=== PATIENT | female | born 1955 | race Caucasian/White ===

== ENCOUNTER → 2017-02-14 | Outpatient (CLI) | payer OTHER ==
[~2017-02-14] MED LIST: ARMOUR THYROID60 M1 PO; ASTRAGALUS470 MG PO; B-121000 MCG PO; B-12500 MCG PO; B-125000 MC1 SUBLING; BUDEPRION XL300 MG PO; CALCIUM 600 +1 EAC1 PO; CELEBREX50 MG; CLEOCIN HCL150 MG; COLACE100 MG PO; CORTEF5 MG PO; FISH OIL 1,001000 M1 PO; GINKGO BILOBA120 M1 PO; GINKGO60 MG PO; GLYCOLAX17 GM PO; HEPARIN BUCCAL; HYDROCHLOROTHIA25 M2 PO; HYDROXYCHLOROQ200 M1; IBUPROFEN 600600 M1 PO; IODINE PO; LEXAPRO 10 MG T10 M1 PO; LIOTHYRONINE PO; LISINOPRIL10 MG PO; MAGNESIUM400 MG; MELATONIN5 M1 PO; MEPHYTON 5 MG TA5 M1; MILK THISTLE500 MG PO; MIRALAX255 GM PO; MIRAPEX0.125 MG PO; MIRAPEX0.25 MG PO; MULTI VITAMIN1 EACH PO; NAPROSYN500 MG PO; NEXIUM 40 MG CA40 M1 PO; NEXIUM2.5 MG PO; NORCO 10-325 T1 EACH PO; NORCO 5-325 TA1 EACH PO; OXYCONTIN CR 1010 M1 PO; PHOSLO667 MG PO; PROBIOTIC1 EAC1 PO; ROBAXIN 750 MG750 M1 PO; SILVER SUPPLEMENT PO; SODIUM OXYBATE PO; TRAMADOL 50 MG50 MG PO; VITAMIN D2000 UNIT PO; VITCB500GO PO; WELLBUTRIN SR150 MG PO; WELLBUTRIN XL300 MG PO; XANAX 0.25 MG0.25 MG PO; XYREM PO; ZPAK; [UNRECOGNIZED DRUG - CODE] BUCCAL; [UNRECOGNIZED DRUG - OTHER] PO; [UNRECOGNIZED DRUG - OTHER] PO
[2017-02-14 12:09] LABS: CSF GLUCOSE 55 mg/dL (40-70); CSF PROTEIN 50 mg/dL (15-45)
[2017-02-14 12:12] LABS: MANUAL DIFF NO; NUMBER OF TUBES 4
[2017-02-14 12:13] LABS: VOLUME 9 ml
[2017-02-14 12:14] LABS: CSF CLARITY CLEAR; CSF WBC 0 /mm3 (0-10)
[2017-02-18 15:06] LABS: CSF ALBUMIN 30 mg/dL (11-48); CSF IgG 6.5 mg/dL (0.0-8.6); CSF/SERUM ALBUMIN INDEX 8 (0-8)
[2017-02-18 19:08] LABS: HHV-6 DNA QUANT Negative (Negative)
[2017-02-19 11:11] LABS: CMV DNA Negative (Negative)
[2017-02-19 12:07] LABS: EBV QUANT Negative (Negative)
[2017-02-20 10:13] LABS: HHV-6 SOURCE CSF
== END | disposition home or self-care (01) ==
LOC: RAD 07:54
PROVIDERS: Psychiatry & Neurology Neurology
DX: A69.20 Lyme disease, unspecified (principal)

== ENCOUNTER 2017-11-18 05:34 | Inpatient (IN) | payer OTHER ==
[2017-11-12 09:44] LABS: HEMATOCRIT 42.5 % (37.0-47.0); HEMOGLOBIN 14.3 gm/dL (12.0-15.0); MCH 27.3 pg (26.0-34.0); MCHC 33.6 g/dL (28.0-37.0); MCV 81.1 fL (80.0-100.0); RBC 5.24 mil/uL (4.20-5.00); RDW 15.5 % (10.5-14.5); WBC 10.4 thou/uL (4.0-11.0)
[2017-11-12 09:50] LABS: URINE BILIRUBIN NEGATIVE (Negative); URINE BLOOD NEGATIVE (Negative); URINE CLARITY CLEAR; URINE COLOR YELLOW; URINE GLUCOSE-RANDOM* NEGATIVE (Negative); URINE KETONES NEGATIVE (Negative); URINE LEUKOCYTES-REFLEX NEGATIVE (Negative); URINE NITRITE-REFLEX NEGATIVE (Negative); URINE PROTEIN (DIPSTICK) NEGATIVE (Negative); URINE SPECIFIC GRAVITY <= 1.005 (1.005-1.035); URINE UROBILINOGEN 0.2 E.U./dl (0.2-1.0)
[2017-11-12 09:59] LABS: ALBUMIN 3.7 g/dL (3.4-5.0); POTASSIUM 3.2 mmol/L (3.5-5.1)
[2017-11-12 10:08] LABS: PROTIME 9.8 Seconds (9.3-11.4)
[~2017-11-18] VITALS: Ht 167.6 cm; Wt 101.2 kg
--- NOTE | ~2017-11-18 | EKG ---
[address] [email or web address] [address] ELECTROCARDIOGRAM REPORT Name: KENNY TRIVEDIORIE SERINA Room #: PRE IN [facility].#: [id number] Admission: Attend Phys: Zak Esparza MD Discharge: Date of : 57 Report #: [id number] THIS REPORT FOR: //name// [facility] Test Date: 2017-11-12 Test Time: 09:13:38 Pat Name: ORAL TRIVEDI Department: Room: Gender: F Poster: SADIQ DORENE : 1955 Requested By: Zak Esparza Order Number: [id number] MD: Albino Goodrich Measurements Intervals Picacho Rate: 77 P: 51 ND: 173 QRS: 17 QRSD: 92 T: 31 QT: 423 QTc: 479 Interpretive Statements Sinus rhythm Nonspecific ST segment abnormality Compared to ECG 04/29/2014 06:24:52 No significant change was found Electronically Signed On 11-12-2017 16:59:55 CDT by Albino Goodrich [email or web address] <ELECTRONICALLY SIGNED> By: Albino Goodrich MD, [facility] 11/12/17 1659 0913 2 Albino Goodrich MD, FACC /EPI
--- NOTE | ~2017-11-18 | O ---
[facility] [address] OPERATIVE REPORT Name: ORAL TRIVEDI Room #: 409-P [facility] IN M.R.#: [id number] Admission: 11/18/17 Attend Phys: Zak Esparza MD Discharge: 11/20/17 Date of : 57 Report #: [id number] THIS REPORT FOR: //name// CC: Pat Haider Zak Esparza DATE OF SERVICE: 11/18/2017 PREOPERATIVE DIAGNOSIS: Left hip osteoarthritis. POSTOPERATIVE DIAGNOSIS: Left hip osteoarthritis. PROCEDURE: Left total hip arthroplasty. SURGEON: Zak Esparza MD COOK SHIP: Caterina Freitas PA-C. INDICATION FOR COOK SHIP: Throughout the case, extensive retraction and manipulation of the hip was required including dislocation and reduction of the hip. This was afforded to me by my staff physical therapy assistant. ANESTHESIA: General endotracheal. IMPLANTS: [employer] size 12 high offset Synergy press fit stem, a size 50 R3 acetabular cup with 1 acetabular screw, size 32+0 Oxinium head. ESTIMATED BLOOD LOSS: 150 mL COMPLICATIONS: None. SPECIMENS: None. CONDITION UPON LEAVING THE OPERATING ROOM: Stable. INDICATION FOR PROCEDURE: The patient is a 62-year-old female with left hip osteoarthritis. She had failed conservative treatment for this and after discussion with her, she elected for left total hip arthroplasty. DESCRIPTION OF PROCEDURE: Risks, benefits, alternatives, complications were discussed in detail with the patient including, but not limited to risk of anesthesia, risk of damage to nerves, arteries, blood vessels, risk for infection, bleeding, risk for continued hip pain, leg length discrepancy, instability and need for reoperation. Informed consent was obtained from the patient. Left hip was appropriately marked in the preoperative holding area. IV Ancef was given for preoperative antibiotics. She was brought to the [address] [address] OPERATIVE REPORT Name: ORAL TRIVEDI Room #: 409-P [facility] IN M.R.#: [id number] Admission: 11/18/17 Attend Phys: Zak Esparza MD Discharge: 11/20/17 Date of : 57 Report #: [id number] operating room and placed in the supine position on the operating room table. General endotracheal anesthesia was induced without complication. She was then placed in the right lateral decubitus position with the left hip uppermost. Left hip and lower extremity were prepped and draped in normal sterile fashion. Timeout was performed properly identifying the patient and procedure as well as instrumentation. All in the operating room were in agreement. Standard posterior approach to the hip was made with 10 blade through the skin. Dissection was taken down to the fascia with Bovie cautery and fresh #10 blade was used to make a fascial incision. This was taken proximally and distally with curved Alvarez scissor. Charnley retractor was placed. The trochanteric bursa was taken down with Bovie cautery. Piriformis tendon was identified, tagged and taken down with Bovie. Short external rotators were also taken down with Bovie. Capsulotomy was made and capsule ends were tagged for later repair. The hip was dislocated and there was extensive osteoarthritic change of the femoral head. Femoral neck cut was made 1 cm proximal to the lesser trochanter based on preoperative templating and the femoral head was removed. Deep acetabular retractors were placed and the labrum was removed sharply. Pulvinar was removed with Bovie cautery. The acetabulum was then sequentially reamed up to a size 50 at which point there was excellent bleeding cancellous bone. A size 49 acetabular cup was trialed and found to have a good fit. A final size 50 R3 acetabular cup was placed and one acetabular screw was placed for backup fixation. A polyethylene liner for 32 head was placed. After this, attention was turned to the femur. This was reamed and broached up to a size 12 at which point a size 12 broach was stable. This was trialed with a high offset neck and a 32+0 head. Hip was reduced, taken through range of motion, found to be stable, found to have equal leg lengths. Hip was dislocated and the broach was removed. Final size 12 high offset Synergy press fit stem was placed. This was trialed again with a 32+0 head. Hip was reduced, taken through range of motion, found to be stable, found to have equal leg lengths. Hip was dislocated once more and a trial head was removed. A final size 32+0 Oxinium head was placed. Hip was reduced, taken through range of motion, found to be stable, found to have equal leg lengths. The hip was thoroughly irrigated with normal saline. A periarticular injection consisting of morphine, ropivacaine, epinephrine and Toradol was placed in the hip joint capsule. A gram of vancomycin was placed deep in the hip joint. The capsule and piriformis were repaired with 0 FiberWire. The fascia was closed with 0 Vicryl, skin was closed with 2-0 Vicryl, 3-0 Monocryl and Dermabond and a GRANT dressing was applied. The patient tolerated this procedure well and went to the recovery room under the care of anesthesia postoperatively. <ELECTRONICALLY SIGNED> By: Zak Esparza MD 11/23/17 0931 1712 1744 Zak Esparza MD /nt
[~2017-11-18 05:34] MED LIST changes: +CALCIUM 500 +1 EAC5 PO; +CELEBREX 200 M200 M1 PO; +FLEXERIL PO; +GABAPENTIN 100100 MG PO; +HYDROCODON-ACE1 EAC7 PO; +IRON18 M1 PO; +NEXIUM40 MG PO
[2017-11-18 14:56] VITALS: BP 134/70
[2017-11-18 20:35] VITALS: BP 112/61
[2017-11-18 23:49] VITALS: BP 99/54
[2017-11-19 05:16] VITALS: BP 102/53
[2017-11-19 05:57] LABS: MCHC 33.5 g/dL (28.0-37.0); RBC 4.43 mil/uL (4.20-5.00)
[2017-11-19 05:58] LABS: HEMATOCRIT 36.1 % (37.0-47.0); HEMOGLOBIN 12.1 gm/dL (12.0-15.0); MCH 27.3 pg (26.0-34.0); MCV 81.4 fL (80.0-100.0); RDW 15.4 % (10.5-14.5); WBC 14.3 thou/uL (4.0-11.0)
[2017-11-19 07:21] VITALS: BP 89/65
[2017-11-19 15:29] VITALS: BP 95/49
[2017-11-19 20:47] VITALS: BP 102/57
[2017-11-20 04:00] VITALS: BP 108/60
[2017-11-20 06:29] LABS: HEMATOCRIT 31.5 % (37.0-47.0); HEMOGLOBIN 10.9 gm/dL (12.0-15.0); MCH 27.6 pg (26.0-34.0); MCHC 34.5 g/dL (28.0-37.0); MCV 80.1 fL (80.0-100.0); RBC 3.94 mil/uL (4.20-5.00); RDW 15.5 % (10.5-14.5); WBC 9.2 thou/uL (4.0-11.0)
[2017-11-20 06:38] LABS: ALBUMIN 2.9 g/dL (3.4-5.0); CALCIUM 9.3 mg/dL (8.5-10.1); CREATININE 1.1 mg/dL (0.6-1.0); PHOSPHORUS 3.9 mg/dL (2.5-4.9)
[2017-11-20 06:41] LABS: POTASSIUM 2.9 mmol/L (3.5-5.1)
[2017-11-20 07:51] VITALS: BP 122/64
[2017-11-20] MEDS ORDERED: PERCOCET PO (16:03)
[2017-11-20] MEDS ORDERED: TRI-BUFFERED A325 M1 PO (16:04)
[2017-11-20 16:08] VITALS: BP 110/58
[2017-11-20 16:10] VITALS: BP 110/58
[2017-11-20 16:12] VITALS: BP 110/58
[2017-11-20] MEDS ORDERED: AMLODIPINE BESY10 MG PO (17:29)
[2017-11-20] MEDS ORDERED: FELODIPINE ER10 MG PO (17:34)
== END 2017-11-20 17:55 | disposition home or self-care (01) | DRG 470 ==
LOC: TBA 05:34 → 4N 05:34 → PRE 07:41 → 4N 18:31 → ENTRNSPT 11-20 17:45 → 4N 11-20 17:55 → PRE 12-09 05:30
PROVIDERS: Hospitalist; Orthopaedic Surgery
PROC: 0SRB06A Replacement of Left Hip Joint with Oxidized Zirconium on Polyethylene Synthetic Substitute, Uncemented, Open Approach (ICD-10-PCS; principal; 2017-11-18)
DX: M16.12 Unilateral primary osteoarthritis, left hip (principal); G40.909 Epilepsy, unspecified, not intractable, without status epilepticus; F32.9 Major depressive disorder, single episode, unspecified; F41.9 Anxiety disorder, unspecified; G25.81 Restless legs syndrome; E87.6 Hypokalemia; T50.2X5A Adverse effect of carbonic-anhydrase inhibitors, benzothiadiazides and other diuretics, initial encounter; Y92.89 Other specified places as the place of occurrence of the external cause; I10 Essential (primary) hypertension; G47.33 Obstructive sleep apnea (adult) (pediatric); E66.9 Obesity, unspecified; Z68.36 Body mass index [BMI] 36.0-36.9, adult; Z88.8 Allergy status to other drugs, medicaments and biological substances; Z79.899 Other long term (current) drug therapy; Z28.21 Immunization not carried out because of patient refusal
CPT/HCPCS: 10790; 50010; 50101; 50382; 50414; 51771; 53000; 53078; 53368; 54118; 56524; 56527; 56528; 56530; 57095; 62110; 62900; 70005

== ENCOUNTER 2017-12-06 05:20 | Inpatient (IN) | payer OTHER ==
[~2017-12-06] VITALS: Ht 167.6 cm; Wt 108.9 kg
[2017-12-06] VITALS (10 sets, daily range): BP systolic 92–140; BP diastolic 56–67
--- NOTE | ~2017-12-06 | HC ---
[facility] [place] [address] CONSULTATION Name: ORAL TRIVEDI Room #: 451-P ADM IN M.R.#: [id number] Admission: 12/06/17 Attend Phys: Zak Esparza MD Discharge: Date of : 57 Report #: [id number] THIS REPORT FOR: //name// CC: Pat Esparza REASON FOR CONSULTATION: I was asked by Dr. Zak Esparza to evaluate the patient concerning left hip hematoma. HISTORY OF PRESENT ILLNESS: The patient is a 62-year-old with underlying degenerative arthritis. On 11/18/2017, she underwent a left total hip arthroplasty without intraoperative complications. She was discharged to home for further rehabilitation. While at home, she developed increased swelling and erythema along the incision. She had some serous drainage noted. No fever, chills or sweats. Persistent pain. Earlier in the week, she was placed on cephalexin, but there was no improvement. I do not have any outpatient cultures. Today, she was taken to Surgery for evacuation of hematoma. There was a small defect in the fascia. The hip joint was washed out. Vancomycin was washed into the joint space. Postoperatively, she is stable. There was no postoperative trauma. She was on aspirin as her anticoagulant. ALLERGIES: Quinine. MEDICATIONS: As noted on her OCT. ALLERGIES: QUININE. PAST MEDICAL HISTORY: Tonsillectomy, Lyme's disease, depression, gastroesophageal reflux, seizure as a child, hypertension, L4-L5 fusion, C3-C4 fusion, lumbar laminectomy, colonoscopy, hypothyroidism, anemia, sleep apnea, restless leg syndrome. FAMILY HISTORY AND SOCIAL HISTORY: Otherwise, noncontributory. REVIEW OF SYSTEMS: No cardiopulmonary, GI or complaints. PHYSICAL EXAMINATION: VITAL SIGNS: Afebrile and hemodynamically stable. Moderately obese. HEENT: Unremarkable. SKIN: Unremarkable other than what will be described in her extremity. LUNGS: Clear. HEART: Regular. ABDOMEN: Soft and nontender. EXTREMITIES: Left thigh swelling 2+ with incisional Hemovac in place. Surrounding erythema noted around the incision line. LABORATORY STUDIES: [facility] [address] [place] [address] CONSULTATION Name: ORAL TRIVEDI Room #: 451-P [facility] IN M.R.#: [id number] Admission: 12/06/17 Attend Phys: Zak Esparza MD Discharge: Date of : 57 Report #: [id number] CRP 31. Sedimentation rate 75. Lower extremity venous Doppler negative. Sodium 139, potassium 4.2, bicarbonate 27, creatinine 1.1. Hemoglobin 11, white count 12.4, platelet count 396,000. IMPRESSION AND PLAN: A 62-year-old 3 weeks post left total hip arthroplasty with associated hematoma. There was a small sinus tract evident. I am awaiting Gram stain and cultures. She has mild increase in her CRP and her sedimentation rate is elevated. Hard to know at this time if this is hematoma and local skin reaction or true surgical site infection. We will need to wait on culture results. We will see how she does postoperatively. We will continue with vancomycin perioperatively. <ELECTRONICALLY SIGNED> By: Deng Gurrola MD 12/07/17 1250 1730 1948 Deng Gurrola MD /nt
--- NOTE | ~2017-12-06 | O ---
[facility] [place] [address] OPERATIVE REPORT Name: ORAL TRIVEDI Room #: 451-P [facility] IN M.R.#: [id number] Admission: 12/06/17 Attend Phys: Zak Esparza MD Discharge: 12/08/17 Date of : 57 Report #: [id number] THIS REPORT FOR: //name// CC: Pat Haider Zak Esparza DATE OF SERVICE: 12/06/2017 PREOPERATIVE DIAGNOSIS: Left hip hematoma, status post total hip arthroplasty. POSTOPERATIVE DIAGNOSIS: Left hip hematoma, status post total hip arthroplasty. PROCEDURE: Evacuation of left hip hematoma. SURGEON: Zak Esparza MD. POURING CRANE OPERATOR: Caterina Freitas PA-C. ANESTHESIA: LMA. COMPLICATIONS: None. ESTIMATED BLOOD LOSS: 25 mL. SPECIMENS: Cultures were taken both superficial and deep. CONDITION UPON LEAVING THE OPERATING ROOM: Stable. INDICATIONS FOR PROCEDURE: The patient is a 62-year-old female who is 2-1/2 weeks out from a left total hip arthroplasty. She has had increasing erythema around her incision with serosanguineous drainage from the incision and after seeing her in the clinic yesterday and discussing with her, we elected for I and D of the hip. It was felt that she likely had a hematoma. We were not able to rule out infection, and so we felt that a return to the operating room for evacuation of the hematoma and cultures was indicated. DESCRIPTION OF PROCEDURE: Risks, benefits, alternatives, complications were discussed in detail with the patient including but not limited to risk of anesthesia, risk of damage to nerves, arteries, blood vessels, risk for infection, bleeding, risk for continued hip pain and potential for long-term infection and need for reoperation. Informed consent was obtained from the patient. Left hip was appropriately marked in the preoperative holding area. She was brought to the operating room, and general endotracheal anesthesia was induced without complications. She has been placed in the right lateral decubitus position with left hip uppermost. Left hip and lower extremity were prepped and draped in normal sterile fashion. Timeout was performed properly [address] [address] OPERATIVE REPORT Name: ORAL TRIVEDIN Room #: 451-P [facility] IN M.R.#: [id number] Admission: 12/06/17 Attend Phys: Zak Esparza MD Discharge: 12/08/17 Date of : 57 Report #: [id number] identifying the patient and procedure as well as the instrumentation. All in the operating room were in agreement. The previous incision was then opened with a 10 blade. Upon entering the adipose layer, there was a large hematoma that was noted. This appeared to be a resolving hematoma with serosanguineous drainage. This was removed and suctioned out and then the fascial closure was evaluated. There was a small opening in the fascial closure that had serosanguineous fluid, and it was felt at this point to go ahead and open the fascia and go all the way down to the hip joint. This was done and cultures of both superficial and deep areas were taken x 2. The wound was then thoroughly irrigated with normal saline using pulse lavage. A gram of vancomycin was placed deep in the hip joint. A deep drain was placed in the hip joint, and the fascia was closed with 0 Vicryl. A drain was placed in the adipose layer. Adipose layer was closed with 0 Vicryl, skin was closed with 2-0 Vicryl and 2-0 nylon. Soft dressing of the GRANT wound dressing was applied. The patient tolerated this procedure well and went to recovery room under care of Anesthesia postoperatively. <ELECTRONICALLY SIGNED> By: Zak Esparza MD 12/10/17 1148 0845 0923 Zak Esparza MD /nt
[~2017-12-06 05:20] MED LIST changes: +AMLODIPINE BESY10 MG PO; +FELODIPINE ER10 MG PO; +PERCOCET PO; +TRI-BUFFERED A325 M1 PO
[2017-12-06 09:02] LABS: HEMATOCRIT 34.1 % (37.0-47.0); MCH 26.5 pg (26.0-34.0); MCHC 32.2 g/dL (28.0-37.0); MCV 82.4 fL (80.0-100.0); RBC 4.14 mil/uL (4.20-5.00); RDW 15.9 % (10.5-14.5); WBC 12.4 thou/uL (4.0-11.0)
[2017-12-06 09:09] LABS: CALCIUM 9.3 mg/dL (8.5-10.1); CREATININE 1.1 mg/dL (0.6-1.0); POTASSIUM 4.2 mmol/L (3.5-5.1)
[2017-12-07 00:45] VITALS: BP 94/48
[2017-12-07 03:00] VITALS: BP 112/56
[2017-12-07 05:17] LABS: HEMATOCRIT 27.6 % (37.0-47.0); HEMOGLOBIN 9.3 gm/dL (12.0-15.0); MCH 27.8 pg (26.0-34.0); MCHC 33.6 g/dL (28.0-37.0); MCV 82.9 fL (80.0-100.0); RBC 3.33 mil/uL (4.20-5.00); RDW 15.9 % (10.5-14.5); WBC 10.6 thou/uL (4.0-11.0)
[2017-12-07 07:51] VITALS: BP 110/56
[2017-12-07 15:54] VITALS: BP 93/47
[2017-12-07 19:42] VITALS: BP 125/60
[2017-12-08 04:52] VITALS: BP 113/64
[2017-12-08 05:48] LABS: HEMATOCRIT 30.5 % (37.0-47.0); HEMOGLOBIN 9.9 gm/dL (12.0-15.0); MCH 26.8 pg (26.0-34.0); MCHC 32.5 g/dL (28.0-37.0); MCV 82.5 fL (80.0-100.0); RBC 3.7 mil/uL (4.20-5.00); RDW 16.4 % (10.5-14.5); WBC 11.5 thou/uL (4.0-11.0)
[2017-12-08 13:36] VITALS: BP 113/64
[2017-12-08 13:48] VITALS: BP 113/64
== END 2017-12-08 14:34 | disposition home or self-care (01) | DRG 482 ==
LOC: TBA 05:20 → 4W 08:11 → TBA 08:11 → 4W 09:42 → TBA 09:42 → 4W 12-08 14:34
PROVIDERS: Orthopaedic Surgery
PROC: 0S9B00Z Drainage of Left Hip Joint with Drainage Device, Open Approach (ICD-10-PCS; principal; 2017-12-06)
DX: T84.83XA Hemorrhage due to internal orthopedic prosthetic devices, implants and grafts, initial encounter (principal); Y83.8 Other surgical procedures as the cause of abnormal reaction of the patient, or of later complication, without mention of misadventure at the time of the procedure; F32.9 Major depressive disorder, single episode, unspecified; K21.9 Gastro-esophageal reflux disease without esophagitis; I10 Essential (primary) hypertension; E03.9 Hypothyroidism, unspecified; G25.81 Restless legs syndrome; Z98.1 Arthrodesis status; Z79.899 Other long term (current) drug therapy; Y92.89 Other specified places as the place of occurrence of the external cause
CPT/HCPCS: 10047; 50010; 50101; 50382; 50414; 51771; 53078; 56525; 56527; 56528; 57095; 62110; 62900

== ENCOUNTER → 2019-02-04 | Outpatient (CLI) | payer OTHER | END | disposition home or self-care (01) | LOC: RAD 07:49 | DX: M70.72 Other bursitis of hip, left hip (principal); M25.552 Pain in left hip; M54.5 Low back pain; Z88.8 Allergy status to other drugs, medicaments and biological substances; Z79.899 Other long term (current) drug therapy; Z98.890 Other specified postprocedural states ==